=== PATIENT | female | born 1990 | race Caucasian/White ===

== ENCOUNTER 2017-01-12 16:40 | Outpatient (CLI) | payer BC, MEDICAID ==
[~2017-01-12] VITALS: Ht 157.5 cm; Wt 76.7 kg
[2017-05-04] MEDS ORDERED: PRENATAL VIT1 TAB PO (15:25)
[2017-05-04] MEDS ORDERED: LAN-O-SOOTHE7 GM TP (15:26)
[2017-05-04] MEDS ORDERED: MOTRIN-DPS800 MG PO (15:26)
[2017-05-04] MEDS ORDERED: COLACE-DPS100 MG PO (15:26)
== END 2017-01-12 19:38 | disposition home or self-care (01) ==
LOC: BC 16:40 → 2LDRP 16:40 → BC 19:38
DX: O99.89 Other specified diseases and conditions complicating pregnancy, childbirth and the puerperium (principal); M54.9 Dorsalgia, unspecified; Z3A.23 23 weeks gestation of pregnancy

== ENCOUNTER 2017-02-08 19:35 | Outpatient (CLI) | payer BC, MEDICAID ==
[2017-05-04] MEDS ORDERED: PRENATAL VIT1 TAB PO (15:25)
[2017-05-04] MEDS ORDERED: LAN-O-SOOTHE7 GM TP (15:26)
[2017-05-04] MEDS ORDERED: MOTRIN-DPS800 MG PO (15:26)
[2017-05-04] MEDS ORDERED: COLACE-DPS100 MG PO (15:26)
== END 2017-02-08 23:30 | disposition home or self-care (01) ==
LOC: 2LDRP 19:35 → BC 19:35
DX: O99.89 Other specified diseases and conditions complicating pregnancy, childbirth and the puerperium (principal); R10.30 Lower abdominal pain, unspecified; M54.9 Dorsalgia, unspecified; Z3A.27 27 weeks gestation of pregnancy

== ENCOUNTER 2017-04-05 14:00 | Outpatient (CLI) | payer BC, MEDICAID ==
[2017-05-04] MEDS ORDERED: PRENATAL VIT1 TAB PO (15:25)
[2017-05-04] MEDS ORDERED: LAN-O-SOOTHE7 GM TP (15:26)
[2017-05-04] MEDS ORDERED: MOTRIN-DPS800 MG PO (15:26)
[2017-05-04] MEDS ORDERED: COLACE-DPS100 MG PO (15:26)
== END 2017-04-05 17:25 | disposition home or self-care (01) ==
LOC: 2LDRP 14:00 → BC 14:00
DX: O42.913 Preterm premature rupture of membranes, unspecified as to length of time between rupture and onset of labor, third trimester (principal); Z3A.34 34 weeks gestation of pregnancy